=== PATIENT | female | born 1940 | race Hispanic/Latino ===

== ENCOUNTER 2018-11-25 02:42 | Inpatient (IN) | payer MEDICARE, MEDICAID ==
[2018-11-25 02:52] VITALS: BMI 27.4
--- NOTE | 2018-11-25 03:29 | ED PDOC ---
Arrival/HPI - General Chief Complaint: Trauma Time Seen by Provider: 11/25/18 02:43 Historian: Patient - History of Present Illness Narrative History of Present Illness (Text): 11/25/18 03:31 78 year old female, whose past medical history includes seizure disorder, presents to the emergency department for evaluation status post fall. Patient states she doesn't think she lost consciousness. Patient states she got very lightheaded, and lost balance, and fell to the floor. Patient informs hitting her head, and her right ankle. Patient denies any fevers, chills, chest pain, shortness of breath, cough, abdominal pain, nausea, vomiting, diarrhea, or any other complaint. PMD: [place] Time/Duration: Prior to Arrival Symptom Onset: Sudden Symptom Course: Unchanged Quality: Aching Activities at Onset: Light Context: Home Past Medical History - Provider Review Nursing Documentation Reviewed: Yes - Cardiac Hx Pacemaker: No - Pulmonary Hx Respiratory Disorders: Yes Hx Pneumonia: Yes - Neurological Hx Paralysis: No - HEENT Hx HEENT Disorder: Yes Hx Deafness: Yes (BILATERAL EAR MORE TO LEFT THAN RIGHT HAS HEARING AIDES) - Renal Hx Renal Disorder: No - Endocrine/Metabolic Hx Diabetes Mellitus Type 1: No Hx Diabetes Mellitus Type 2: No - Hematological/Oncological Hx Blood Transfusions: No Hx Blood Transfusion Reaction: No - Integumentary Hx Dermatological Disorder: No - Musculoskeletal/Rheumatological Hx Musculoskeletal Disorders: Yes - Gastrointestinal Hx Gastrointestinal Disorders: Yes Hx Gall Bladder Disease: Yes (CHOLECYSTECTOMY) Other/Comment: GASTROENTERITIS,IBS,HEMORRHOIDS - Genitourinary/Gynecological Hx Genitourinary Disorders: No Other/Comment: HYSTERECTOMY,TUBAL LIGATION - Psychiatric Hx Emotional Abuse: No Hx Physical Abuse: No Hx Substance Use: No - Surgical History Hx Cholecystectomy: Yes Hx Hysterectomy: Yes Other/Comment: LEFT EAR SURGERY,MENINGIONA RESECTION ,TUBAL LIGATION, TONSILLECTOMY, - Anesthesia Hx Anesthesia Reactions: No Hx Malignant Hyperthermia: No - Suicidal Assessment Feels Threatened In Home Enviroment: No Family/Social History - Physician Review Nursing Documentation Reviewed: Yes Family/Social History: No Known Family HX Smoking Status: Former Smoker Hx Alcohol Use: No Hx Substance Use: No Hx Substance Use Treatment: No Allergies/Home Meds Allergies/Adverse Reactions: Allergies No Known Allergies Allergy (Verified 11/25/18 02:53) Home Medications: Home Meds Medication Instructions Recorded Confirmed Atorvastatin [Lipitor] 40 mg PO DAILY 04/25/15 11/25/18 Oxcarbazepine [Trileptal] 150 mg PO BID 04/25/15 11/25/18 Lorazepam 0.5 mg PO HS PRN 01/12/16 11/25/18 Phenytoin Sodium Extended 200 mg PO BID 01/12/16 11/25/18 [Phenytek] Hydrochlorothiazide [HCTZ] 1 tab PO DAILY 05/25/16 11/25/18 Omeprazole 1 tab PO DAILY 05/25/16 11/25/18 Polyethylene Glycol 3350 [Miralax] 17 gm PO DAILY 05/30/16 11/25/18 Review of Systems - Physician Review All systems were reviewed & negative as marked: Yes - Review of Systems Constitutional: absent: Fevers Respiratory: absent: SOB Physical Exam - Physical Exam Narrative Physical Exam (Text): 11/25/18 03:21 Constitutional: No acute distress. Head: Normocephalic. Atraumatic. Eyes: PERRL. ENT: Moist mucous membranes. Neck: Supple. Cardiovascular: Regular rate. Chest: No tenderness. Respiratory: Clear to auscultation bilaterally. GI: Soft. Nontender. Nondistended. Back: No CVA tenderness. Musculoskeletal: Edema to lateral ankle with ecchymosis. Distal pulses 2+. Sensory-motor intact. Skin: No rash. Neurologic: Alert, no focal deficit. Vital Signs Reviewed: Yes Vital Signs Temp Pulse Resp BP Pulse Ox 11/25/18 03:04 97.9 F 95 H 16 145/100 H 99 Temperature: Afebrile Blood Pressure: Hypertensive Pulse: Tachycardic Respiratory Rate: Normal Appearance: Positive for: Well-Appearing, Non-Toxic, Comfortable Pain Distress: None Mental Status: Positive for: Alert and Oriented X 3 Medical Decision Making ED Course and Treatment: 11/25/18 03:35 Impression: 78 year old female presents for evaluation status post fall Plan: -- CT Head -- CMP, Chemistry -- CBC, Labs -- Chest X-ray -- X-ray right ankle -- Reassess and disposition Prior Visits: Notes and results from previous visits were reviewed. Progress Notes: 11/25/18 03:36 EKG reviewed by me, shows: Normal sinus rhythm @ 80bpm T wave inversions V1-V3 No ST elevation, QTC 479ms 11/25/18 05:34 CT scan of the head. CLINICAL HISTORY: Fall. TECHNIQUE: Multiple axial CT images were obtained through the brain without IV contrast material. COMMENTS: Left parietal craniotomy. Associated left parietal chronic encephalomalacia. Air-fluid levels with a secretions in the maxillary sinuses. Mild bilateral effusions in the mastoid air cells. There is normal configuration of sella turcica. There are no intra or extra- axial collections. There is no mass effect or midline shift. There is no evidence of hematoma formation. No hydrocephalus is present. The ventricles are symmetrical. No abnormal calcifications are present. There is diffuse age-appropriate cerebellar and cerebral atrophy with proportionally dilated ventricles and cortical sulci. There are bilateral periventricular and subcortical white matter hypolucencies compatible with mild chronic microvascular disease. Otherwise, no significant focal abnormalities are seen either in the posterior fossa or supratentorial compartment. IMPRESSION: 1. Age-appropriate cerebellar and cerebral atrophy. 2. Mild chronic microvascular disease. 3. No evidence of acute intracranial pathology. Splint placed. Dr. Sanford accepts to his service, recommends Dr. Camargo for Ortho consultation. - Scribe Statement The provider has reviewed the documentation as recorded by the Abril Faustin Provider Scribe Attestation: All medical record entries made by the Scribe were at my direction and personally dictated by me. I have reviewed the chart and agree that the record accurately reflects my personal performance of the history, physical exam, medical decision making, and the department course for this patient. I have also personally directed, reviewed, and agree with the discharge instructions and disposition. Disposition/Present on Arrival - Present on Arrival Any Indicators Present on Arrival: No History of DVT/PE: No History of Uncontrolled Diabetes: No Urinary Catheter: No History of Decub. Ulcer: No History Surgical Site Infection Following: None - Disposition Have Diagnosis and Disposition been Completed?: Yes Diagnosis: Syncope, Ankle fracture, Acute electrocardiogram changes Disposition: HOSPITALIZED Disposition Time: 04:50 Patient Plan: Admission, Telemetry Condition: FAIR Discharge Instructions (ExitCare): Syncope (ED) Referrals: Leyla Sandoval DO [Primary Care Provider] - Follow up with primary Forms: [employer] (Citizen [place])
[2018-11-25 03:43] LABS: BASO # 0.04 K/mm3 (0.0-2.0); BASO % 0.4 % (0.0-3.0); EOS # 0.2 (0.0-0.7); EOS % 2.4 % (1.5-5.0); GRAN # 5.59 (1.4-6.5); GRAN % 61.8 % (50.0-68.0); HEMOGLOBIN 12.9 g/dL (12.0-16.0); LYMPH # 2.7 (1.2-3.4); LYMPH % 29.9 % (22.0-35.0); MEAN CELL VOLUME 97.7 fl (80.0-105.0); MEAN CORPUSCULAR HEMOGLOBIN 32.8 pg (25.0-35.0); MEAN CORPUSCULAR HGB CONC 33.6 g/dl (31.0-37.0); MEAN PLATELET VOLUME 10.5 fl (7.0-11.0); MONO # 0.5 (0.1-0.6); MONO % 5.5 % (1.0-6.0); RBC 3.93 10^6/uL (3.5-6.1); RED CELL DISTRIBUTION WIDTH 12.9 % (11.5-14.5); WHITE BLOOD COUNT 9.1 10^3/uL (4.5-11.0)
[2018-11-25 03:48] LABS: INR 0.97; PARTIAL THROMBOPLASTIN TIME 25.8 Seconds (25.1-36.5); PROTHROMBIN TIME 11.1 SECONDS (9.4-12.5)
[2018-11-25 03:49] LABS: ALB/GLOB RATIO 1.2 (1.1-1.8); ALBUMIN 4.2 g/dL (3.0-4.8); ALT/SGPT 26 U/L (7-56); AST/SGOT 29 U/L (14-36); BLOOD UREA NITROGEN 13 mg/dL (7-21); CALCIUM 9.2 mg/dL (8.4-10.5); GFR NON-AFRICAN AMERICAN > 60
[2018-11-25 04:00] LABS: TROPONIN I < 0.01 ng/mL
[2018-11-25] MEDS ORDERED: Morphine 2 mg/ml ISec IVP STA (04:09)
--- NOTE | 2018-11-25 07:13 | CT ---
Date of service: 11/25/2018 PROCEDURE: CT HEAD WITHOUT CONTRAST. HISTORY: fall COMPARISON: Noncontrast head CT 01/11/2016. TECHNIQUE: Axial computed tomography images were obtained through the head/brain without intravenous contrast. Radiation dose: Total exam DLP = 874.5 mGy-cm. This CT exam was performed using one or more of the following dose reduction techniques: Automated exposure control, adjustment of the mA and/or kV according to patient size, and/or use of iterative reconstruction technique. FINDINGS: HEMORRHAGE: No intracranial hemorrhage. BRAIN: A stable, large chronic left parietal lobar infarct is appreciated without significant change. Otherwise, good corticomedullary differentiation is seen. Reiterated diffuse cerebral atrophy and chronic microangiopathy. No suspicious extra-axial fluid collection is identified and the midline brain anatomy appears grossly nonfocal as imaged. No mass effect identified. VENTRICLES: Unremarkable. No hydrocephalus. CALVARIUM: Unremarkable. PARANASAL SINUSES: Unremarkable as visualized. No significant inflammatory changes. MASTOID AIR CELLS: Unremarkable as visualized. No inflammatory changes. OTHER FINDINGS: None. IMPRESSION: 1. No demonstrated acute intracranial findings in the interval compared prior CT 01/11/2016. 2. Left parietal chronic lobar infarction reiterated. 3. Reiterated limited age related neuro degenerative changes, age-appropriate. Concordant preliminary report from [facility], 11/25/2018 5:06 a.m..
--- NOTE | 2018-11-25 07:32 | RAD ---
Date of service: 11/25/2018 HISTORY: near syncope COMPARISON: 01/11/2016 FINDINGS: LUNGS: No active pulmonary disease. PLEURA: No significant pleural effusion identified, no pneumothorax apparent. CARDIOVASCULAR: Aortic calcifications Normal cardiac size. No pulmonary vascular congestion. OSSEOUS STRUCTURES: No significant abnormalities. VISUALIZED UPPER ABDOMEN: Normal. OTHER FINDINGS: None. IMPRESSION: No active disease.
--- NOTE | 2018-11-25 07:36 | RAD ---
Date of service: 11/25/2018 PROCEDURE: Right Ankle Radiographs. HISTORY: ankle edema, fall COMPARISON: None available. FINDINGS: BONES: There is a displaced obliquely oriented fracture of the distal fibula just above the level of the ankle joint. JOINTS: Normal. No osteoarthritis. Ankle mortise maintained. Talar dome intact SOFT TISSUES: Normal. OTHER FINDINGS: None. IMPRESSION: There is a displaced obliquely oriented fracture of the distal fibula just above the level of the ankle joint.
--- NOTE | 2018-11-25 08:13 | CP.PCM.HP ---
<Darcie Tobar - Last Filed: 11/25/18 14:01> History of Present Illness - History of Present Illness History of Present Illness: 78yo female PMHx brain tumor s/p resection, seizure disorder, HTN, HLD, hearing deficit, vertigo, OA, and falls was BIBA to [facility] for dizziness and a fall. Patient reports that the day prior she was getting out of the bathroom and felt dizzy and fell over. She was alone when this happened. She believes she did lose consciousness as she does not remember what happened after she fell until she "woke up" and does not recall how long she was lying on the floor for. Patient did admit to having a sensation of "dry lips" which she does prior to having seizures in the past. She denied any biting of the tongue/lips and denied any bladder/bowel incontinence. She did report hitting her head at the back but denied any headaches. Patient's last seizure was in the fall of last year. She reports she began having seizures after her tumor resection and sees a neurologi st outpatient for this and is compliant with her medications. Her seizures used to be grand mal but she is uncertain of what they are now. Patient reports she has had multiple falls in the pat. She did admit to RLE pain and swelling and reported her ankle and shins were bruised. She denied acute complaints of fever, chills, changes in vision, changes in hearing, chest pain, palpitations, SOB, cough, abdominal pain, nausea, vomiting, dysuria, hematuria, numbness/tingling, focal deficits. Patient did admit that she often has trouble remembering things and finds herself repeating herself and has constipation, decreased appetite, and decreased urination. PMHx: brain tumor s/p resection, seizure disorder, HTN, HLD, hearing deficit, vertigo, OA, and falls PSurgHx: cholecystectomy, brain tumor resection, hysterectomy PProcedure: colonoscopy 2 years ago Meds: pls see chart ALL: NKDA FamHx: sister with breast ca; mother and father had MIs; sister had an MD; no history of CVA in the family SocHx: tobacco use in the past- quit 20 years ago; denies EtOH/drug use. Lives at home by herself. She has a visiting aid 5 times/week. Patient has not worked with PT in the past. 12 point ROS reviewed and as per above PMD: Dr. Leyla Sandoval Neuro: Dr. Mckenzie Uriarte Present on Admission - Present on Admission Any Indicators Present on Admission: No Review of Systems - Review of Systems All systems: reviewed and no additional remarkable complaints except Review of Systems: as per HPI Past Patient History - Past Social History Smoking Status: Former Smoker - CARDIAC Hx Pacemaker: No - PULMONARY Hx Respiratory Disorders: Yes Hx Pneumonia: Yes - NEUROLOGICAL Hx Paralysis: No - HEENT Hx HEENT Problems: Yes Hx Deafness: Yes (BILATERAL EAR MORE TO LEFT THAN RIGHT HAS HEARING AIDES) - RENAL Hx Chronic Kidney Disease: No - ENDOCRINE/METABOLIC Hx Diabetes Mellitus Type 1: No Hx Diabetes Mellitus Type 2: No - HEMATOLOGICAL/ONCOLOGICAL Hx Blood Transfusions: No Hx Blood Transfusion Reaction: No - INTEGUMENTARY Hx Dermatological Problems: No - MUSCULOSKELETAL/RHEUMATOLOGICAL Hx Musculoskeletal Disorders: Yes - GASTROINTESTINAL Hx Gastrointestinal Disorders: Yes Hx Gall Bladder Disease: Yes (CHOLECYSTECTOMY) Other/Comment: GASTROENTERITIS,IBS,HEMORRHOIDS - GENITOURINARY/GYNECOLOGICAL Hx Genitourinary Disorders: No Other/Comment: HYSTERECTOMY,TUBAL LIGATION - PSYCHIATRIC Hx Emotional Abuse: No Hx Physical Abuse: No Hx Substance Use: No - SURGICAL HISTORY Hx Cholecystectomy: Yes Hx Hysterectomy: Yes Other/Comment: LEFT EAR SURGERY,MENINGIONA RESECTION ,TUBAL LIGATION, TONSILLECTOMY, - ANESTHESIA Hx Anesthesia Reactions: No Hx Malignant Hyperthermia: No Meds Allergies/Adverse Reactions: Allergies Allergy/AdvReac Type Severity Reaction Status Date / Time No Known Allergies Allergy Verified 11/25/18 02:53 Physical Exam - Constitutional Appears: Non-toxic, No Acute Distress - Head Exam Head Exam: ATRAUMATIC, NORMAL INSPECTION, NORMOCEPHALIC - Eye Exam Eye Exam: EOMI, Normal appearance, PERRL. absent: Conjunctival injection, Scleral icterus - ENT Exam ENT Exam: Mucous Membranes Moist - Neck Exam Neck exam: Positive for: Full Rom. Negative for: Lymphadenopathy, Tenderness - Respiratory Exam Respiratory Exam: Clear to Auscultation Bilateral, NORMAL BREATHING PATTERN. absent: Accessory Muscle Use, Rales, Rhonchi, Wheezes, Respiratory Distress - Cardiovascular Exam Cardiovascular Exam: Tachycardia, +S1, +S2 - GI/Abdominal Exam GI & Abdominal Exam: Normal Bowel Sounds, Soft. absent: Firm, Guarding, Rigid, Tenderness - Extremities Exam Additional comments: RLE swollen and tender to palpation; wrapped in YA wrap LLE distal pulses present - Back Exam Back exam: NORMAL INSPECTION. absent: rash noted - Neurological Exam Neurological exam: Alert, Oriented x3 Additional comments: +pill rolling tremor - Psychiatric Exam Psychiatric exam: Anxious Results - Vital Signs Recent Vital Signs: Last Vital Signs Temp 97.9 F 11/25/18 03:04 Pulse 76 11/25/18 06:46 Resp 19 11/25/18 06:46 BP 115/71 11/25/18 06:46 Pulse Ox 96 11/25/18 06:46 - Labs Result Diagrams: 11/25/18 03:11 11/25/18 03:11 Labs: Laboratory Results - last 24 hr 11/25/18 11/25/18 11/25/18 03:11 03:11 03:11 WBC 9.1 RBC 3.93 Hgb 12.9 Hct 38.4 MCV 97.7 MCH 32.8 MCHC 33.6 RDW 12.9 Plt Count 258 MPV 10.5 Gran % 61.8 Lymph % (Auto) 29.9 [place] % (Auto) 5.5 Eos % (Auto) 2.4 Baso % (Auto) 0.4 Gran # 5.59 Lymph # (Auto) 2.7 [place] # (Auto) 0.5 Eos # (Auto) 0.2 Baso # (Auto) 0.04 PT INR APTT Sodium 140 Potassium 3.6 Chloride 102 Carbon Dioxide 30 Anion Gap 12 BUN 13 Creatinine 0.9 Est GFR ( Amer) > 60 Est GFR (Non-Af Amer) > 60 Random Glucose 123 H Calcium 9.2 Total Bilirubin 0.6 AST 29 ALT 26 Alkaline Phosphatase 116 Total Creatine Kinase 54 Troponin I < 0.01 Total Protein 7.7 Albumin 4.2 Globulin 3.5 Albumin/Globulin Ratio 1.2 Blood Type O POSITIVE Blood Type Confirm Antibody Screen Negative BBK History Checked No verified bt 11/25/18 11/25/18 03:11 06:48 WBC RBC Hgb Hct MCV MCH MCHC RDW Plt Count MPV Gran % Lymph % (Auto) [place] % (Auto) Eos % (Auto) Baso % (Auto) Gran # Lymph # (Auto) [place] # (Auto) Eos # (Auto) Baso # (Auto) PT 11.1 INR 0.97 APTT 25.8 Sodium Potassium Chloride Carbon Dioxide Anion Gap BUN Creatinine Est GFR ( Amer) Est GFR (Non-Af Amer) Random Glucose Calcium Total Bilirubin AST ALT Alkaline Phosphatase Total Creatine Kinase Troponin I Total Protein Albumin Globulin Albumin/Globulin Ratio Blood Type Blood Type Confirm O POSITIVE Antibody Screen BBK History Checked Assessment & Plan - Assessment and Plan (Free Text) Assessment: 1. Syncope 2. Seizure disorder 3. Frequent Falls 4. R distal fibula fracture 5. HTN 6. HLD 7. Hearing impairment left worse than right 8. Vertigo 9. Osteoarthritis 10. Anxiety 11. Delirium 12. Constipation 13. Decreased appetite Plan: Patient's vitals, imaging, and blood work reviewed in chart. Patient admitted to remote [facility] for further management. Patient's syncope to be investigated for any cardiogenic vs neurogenic causes. Head CT demonstrated no acute intracranial findings; Left parietal chronic lobar infarction and age related neurodegenerative changes. Carotid u/s and orthostatics ordered- will f/u. Cardiology was consulted who ordered an Echo- will f/u. As the patient was un certain if she had a seizure, neurology was also consulted for further work up. Patient's phenytoin level elevated at 21. Patient was restarted on home medications Trileptal and Dilantin. Patient also has seizure precautions in place and has Ativan on board as prn for seizure activity. Will f/u neurology recommendations. As patient endorsed multiple falls, physical therapy has been consulted for gait training and evaluation and patient placed on high fall risk protocol. Patient's R ankle x-ray revealed a displaced obliquely oriented fracture of the distal fibula just above the level of the ankle joint. Ortho was consulted and patient's RLE is in a splint. Patient has tylenol on board for mil d pain and morphine ordered for moderate pain. 25OH vitamin D ordered- will f/u. Patient's home medications of ASA 81mg, HCTZ 25mg, and Lipitor 40mg was continued for chronic issues of HTN and HLD. Will continue to monitor patient's blood pressure and follow up work up of Lipid panel, Thyroid studies, and HgbA1c with AM labs. Patient endorsed constipation; will continue home Dulcolax prn and Miralax daily and monitor for bowel movements. Patient also endorsed a decreased appetite- utility helicopter repairer consulted to evaluate. Patient's hearing impairment likely secondary to episodes of otitis media in the past; patient wears a hearing aid at home. Has been recommended to bring in with family. Patient has home ativan on board for anxiety. If patient has episodes of delirium, recommended to re- direct at this time. DVT ppx ordered and patient on a heart healthy diet. Will continue to monitor patient closely. Discussed with Dr. Juvenal Tobar PGY3 <Jessee Sanford - Last Filed: 11/25/18 19:57> Results - Vital Signs Recent Vital Signs: Last Vital Signs Temp 97.9 F 11/25/18 19:18 Pulse 82 11/25/18 19:18 Resp 20 11/25/18 19:18 BP 133/79 11/25/18 19:18 Pulse Ox 94 L 11/25/18 19:18 - Labs Result Diagrams: 11/25/18 03:11 11/25/18 03:11 Labs: Laboratory Results - last 24 hr 11/25/18 11/25/18 11/25/18 03:11 03:11 03:11 WBC 9.1 RBC 3.93 Hgb 12.9 Hct 38.4 MCV 97.7 MCH 32.8 MCHC 33.6 RDW 12.9 Plt Count 258 MPV 10.5 Gran % 61.8 Lymph % (Auto) 29.9 [place] % (Auto) 5.5 Eos % (Auto) 2.4 Baso % (Auto) 0.4 Gran # 5.59 Lymph # (Auto) 2.7 [place] # (Auto) 0.5 Eos # (Auto) 0.2 Baso # (Auto) 0.04 PT INR APTT Sodium 140 Potassium 3.6 Chloride 102 Carbon Dioxide 30 Anion Gap 12 BUN 13 Creatinine 0.9 Est GFR ( Amer) > 60 Est GFR (Non-Af Amer) > 60 POC Glucose (mg/dL) Random Glucose 123 H Calcium 9.2 Total Bilirubin 0.6 AST 29 ALT 26 Alkaline Phosphatase 116 Total Creatine Kinase 54 Troponin I < 0.01 Total Protein 7.7 Albumin 4.2 Globulin 3.5 Albumin/Globulin Ratio 1.2 25-OH Vitamin D Total Phenytoin Blood Type O POSITIVE Blood Type Confirm Antibody Screen Negative BBK History Checked No verified bt 11/25/18 11/25/18 11/25/18 03:11 06:48 08:20 WBC RBC Hgb Hct MCV MCH MCHC RDW Plt Count MPV Gran % Lymph % (Auto) [place] % (Auto) Eos % (Auto) Baso % (Auto) Gran # Lymph # (Auto) [place] # (Auto) Eos # (Auto) Baso # (Auto) PT 11.1 INR 0.97 APTT 25.8 Sodium Potassium Chloride Carbon Dioxide Anion Gap BUN Creatinine Est GFR ( Amer) Est GFR (Non-Af Amer) POC Glucose (mg/dL) Random Glucose Calcium Total Bilirubin AST ALT Alkaline Phosphatase Total Creatine Kinase Troponin I Total Protein Albumin Globulin Albumin/Globulin Ratio 25-OH Vitamin D Total Phenytoin 21 H Blood Type Blood Type Confirm O POSITIVE Antibody Screen BBK History Checked 11/25/18 11/25/18 08:22 16:12 WBC RBC Hgb Hct MCV MCH MCHC RDW Plt Count MPV Gran % Lymph % (Auto) [place] % (Auto) Eos % (Auto) Baso % (Auto) Gran # Lymph # (Auto) [place] # (Auto) Eos # (Auto) Baso # (Auto) PT INR APTT Sodium Potassium Chloride Carbon Dioxide Anion Gap BUN Creatinine Est GFR ( Amer) Est GFR (Non-Af Amer) POC Glucose (mg/dL) 107 Random Glucose Calcium Total Bilirubin AST ALT Alkaline Phosphatase Total Creatine Kinase Troponin I Total Protein Albumin Globulin Albumin/Globulin Ratio 25-OH Vitamin D Total 92.5 Phenytoin Blood Type Blood Type Confirm Antibody Screen BBK History Checked Assessment & Plan - Assessment and Plan (Free Text) Plan: Pt seen and examined by me. I have reviewed the note of the medical clerk and I agree with it. I have discussed the assessment and plan with the resident. I have reviewed the medications and the last labs.Pt with syncope. She has a hx of Sz d/o. She will need neuro and cardio evaluation. She will be continued on Di lantin and Trileptal. She has a R distal fibula fx and will need Ortho evaluation. She is going to continue with HCTZ for her HTN. She will be continued on Lipitor for her dyslipidmeia. She will get PT and will most likely need FABRICE. Will need echo to evaluate valves and LV function.
[2018-11-25] MEDS ORDERED: Bisacodyl 5mg EC Tab PO PRN (09:59)
[2018-11-25] MEDS: POLYETHYLENE GLYCOL 3350 17 GM/Dose PACKET PO SCH ×2 (11:08→11:11)
--- NOTE | 2018-11-25 14:07 | CON ---
DATE: 11/25/2018 REASON FOR CONSULTATION: Cardiac evaluation, rule out syncope, rule out seizure disorders, status post fall. 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 She is not sure whether she passed out or blacked out but she thinks she is and she had a very small seizure activity and fell down and sustained right ankle injury. Denies any chest pain. Denies any shortness of breath. Denies any palpitation prior to this event, but though she claims that on walking she gets short winded every now and then. PAST MEDICAL HISTORY: Significant for brain tumor, status post craniotomy and history of seizure disorder and history of osteoarthritis. PAST SURGICAL HISTORY: Significant for cholecystectomy 10 years ago, history of craniotomy for brain tumor 9 years ago and history of hysterectomy after that. SOCIAL HISTORY: Ex-smoker, quit 30 years ago. Denies any history of alcohol abuse. CURRENT MEDICATIONS: The patient is taking MiraLax 17 g daily, phenytoin 200 mg p.o. twice daily, Trileptal 150 mg p.o. b.i.d. lorazepam, hydrochlorothiazide and atorvastatin 40 mg daily. ALLERGIES: NO KNOWN DRUG ALLERGY. PREVIOUS CARDIAC WORKUP: As follows; the patient had a stress test done dated 01/13/2016 that shows ejection fraction of 74%, normal SPECT myocardial perfusion study, it was Lexiscan and negative for ischemia. The patient had also echocardiography done on 01/12/2016 which shows normal LV function, left atrium enlarged, trace aortic regurgitation, mild mitral regurgitation, mild tricuspid regurgitation, RV systolic pressure 47 suggestive of mild pulmonary hypertension dated 01/12/2016. REVIEW OF SYSTEMS: As per HPI. Denies any chest pain, but complained of shortness of breath on exertion and history of seizure disorder, as mentioned above, history of hard of hearing as mentioned above, history of osteoarthritis. PHYSICAL EXAMINATION: GENERAL: Height of the patient 5 feet 6 inches. Weight of the patient 170 pounds. Body mass index 27 kg/m2. VITAL SIGNS: Afebrile, heart rate 76 and blood pressure 115/71. HEENT: PERRLA. Extraocular muscles intact. NECK: Supple. No carotid bruit or thyromegaly. CHEST: Clear to auscultation. HEART: S1 and S2, regular. ABDOMEN: Soft. EXTREMITIES: Clubbing and cyanosis negative. LABORATORY DATA: WBC 9.1, hemoglobin 12.9, hematocrit 38.4, and platelet count 258. Chemistry shows sodium 140, potassium 3.6, chloride 102, CO2 of 30, anion gap of 12, BUN 13, creatinine 0.9, troponin 0.01. EKG shows normal sinus, no acute ST-T changes noted and nonspecific ST-T changes with no acute ST-T changes noted. QTc corrected to 479. IMPRESSION: A 78-year-old female with past medical history significant for brain tumor, status post craniotomy, history of seizure disorder, osteoarthritis, fell down on the way to the bathroom and sustained sprain of the ankle and displaced oblique orient fracture of distal fibula. Cardiac evaluation for possible syncope, possible seizure disorder, also complaining of shortness of breath. Recent cardiac workup 2 years ago, the patient had a stress test done was negative for ischemia and echo at that time revealed mild mitral regurgitation, mild tricuspid regurgitation, mild pulmonary hypertension. RECOMMENDATIONS: We will get echo to assess LV function, ortho evaluation. We will follow with you. So far CAT scan of the head was negative for any acute when compared from 01/11/2016, no acute changes noted from the CAT scan. Left parietal chronic lobar infarction reiterated as in the past. Recommendations, we will get echo to assess LV function, lipid profile, TSH, hemoglobin A1c. Should the patient need, fibular surgery, the patient can go cleared from Cardiology point of view. We will follow with you. We will resume the medication, the patient is asking for antiseizure medication. We will resume it. Thank you for providing us the opportunity in taking care of the patient, Adrienne Santillan. Maxim Fajardo MD
[2018-11-25] MEDS ORDERED: Pneumococcal 23-Valent Vaccine IM ONE (14:29)
[2018-11-25] MEDS ORDERED: Influenza Vaccine 60 mcg/0.5 mL SYR (4YR UP) IM ONE (14:29)
--- NOTE | 2018-11-25 15:11 | CON ---
DATE: 11/25/2018 HISTORY OF PRESENT ILLNESS: The patient slip and fell at home last night in the emergency room about 5 a.m., x-rays of the injured right ankle showed moderately displaced lateral malleolar fracture right ankle and the examination shows at the medial malleolus is nontender and the ankle motor does not unstable, so with this injury we could treated conservatively with short leg cast covered with sling was down them put in fracture boot cast and she can put partial weight on it with a walker. So, no surgery is needed . . So, I told the nurse, jian be put in a splint trying to get the swelling down quicker. In emergency room,will get a walking bootlater and I can follow her up in the office, since clear to here, she does not need surgery, just follow her closely, but she does need protection when she does walk. FINAL DIAGNOSES: Lateral malleolar fracture right ankle with intact medial malleolus and deltoid ligament intact and stable ankle mortise. PLAN: Plan to treat it conservatively with a short leg cast and fracture boot over period of 6 to 8 weeks. Evan Camargo DO LISA
--- NOTE | 2018-11-25 18:03 | US ---
Date of service: 11/25/2018 PROCEDURE: Duplex ultrasound of the carotid and vertebral arteries. HISTORY: syncope COMPARISON: None available. TECHNIQUE: Grayscale and duplex Doppler evaluation of the cervical carotid and vertebral arteries were performed. The common carotid, carotid bifurcations and cervical ICA and proximal ECA were evaluated. The vertebral arteries were evaluated for gross patency and direction. FINDINGS: RIGHT CAROTID ARTERIES: Common Carotid Artery: Normal. Maximal flow velocity of 79.4 cm/s. Carotid Bifurcation: Normal. Internal Carotid Artery:Heavy calcific plaque. Maximal flow velocity of 88.6 cm/s. External Carotid Artery (proximal branches): Normal. Maximal flow velocity of 154.3 cm/s. ICA/CCA Ratio: 1.3 LEFT CAROTID ARTERIES: Common Carotid Artery: Normal. Maximal flow velocity of 115.6 cm/s. Carotid Bifurcation: Calcific plaque. Internal Carotid Artery:Normal. Maximal flow velocity of 80.6 cm/s. External Carotid Artery (proximal branches): Normal. Maximal flow velocity of 102.6 cm/s. ICA/CCA Ratio: 0.9 VERTEBRAL ARTERIES: Right Vertebral Artery: Patent. Antegrade flow. Left Vertebral Artery: Patent. Antegrade flow. OTHER FINDINGS: No atherosclerotic calcification present IMPRESSION: Per NASCET criteria, less than 50 percent stenosis of the internal carotid arteries, bilaterally.
--- NOTE | 2018-11-25 18:23 | CON ---
DATE: 11/25/2018 CHIEF COMPLAINT: Evaluation of syncope and history of seizure disorder. HISTORY OF PRESENT ILLNESS: This is 78-year-old woman with history of left lobar infarction which resulted in seizures, on Trileptal and Dilantin for years, hypertension, hyperlipidemia, hearing deficit, vertigo, osteoarthritis came to ER for dizziness and fall. She reported that she was on antibiotic and felt lightheaded and spinning in the room and fell over. She happened. She believes she did not loose consciousness and does not remember what happen after that. The patient denies any lips smacking or any bowel and bladder incontinence. She has been compliant with her seizure medications. Actually, she follows as an outpatient. Her Dilantin level is 21, which is elevated, therefore caused her dizziness therefore will put her Dilantin in hold and just continue her on Trileptal, which is her dose of 150 mg p.o. b.i.d., significant enough to be for seizure prophylaxis. No focal deficits on exam. Carotid Doppler is current pending. She is also being evaluated by cardiology. PAST MEDICAL HISTORY: As above. SOCIAL HISTORY: No illicit drug use, smoking or EtOH abuse at this time. FAMILY HISTORY: Noncontributory MEDICATIONS: Reviewed by nurse's reconciliation sheet. ALLERGIES: NO KNOWN DRUG ALLERGIES. LABORATORY DATA: Dilantin level is 21. Sodium is 140, potassium is 3.6, chloride of 102, carbon dioxide 30, BUN of 13, creatinine 0.9, and random glucose of 123. PHYSICAL EXAMINATION: GENERAL: The patient seen up in bed and in no acute distress. VITAL SIGNS: Temperature 97.9, pulse rate of 79, blood pressure of 144/66, respiratory rate of 21,and oxygen saturation of 97% on room air. HEENT: Atraumatic, normocephalic. PERRLA. Extraocular muscles intact. NECK: Supple. No JVD. No adenopathy noted. LUNGS: Clear to auscultation. No adventitious sounds. HEART: S1 and S2 normal. Normal rate and rhythm. No murmurs, rubs or gallops. ABDOMEN: Soft, nontender and nondistended. Bowel sounds are present. EXTREMITIES: No clubbing and no cyanosis. Peripheral pulses are 2+ felt bilaterally. NEUROLOGICAL: The patient is alert and oriented to person, place, month and year. Recall after 5 minutes is 0.3. poor attention span. Slow thought process. Cranial nerves II through XII are intact. Motor exam; some mild residual weakness from prior CVA. Otherwise, toes are downgoing bilaterally. Sensory exam; light touch, pinprick, proprioception and vibration are intact. DTRs are 2+ throughout one in both in knees and ankles. Coordination; [id number] is intact. No dysmetria noted. Gaits are deferred for now. 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 She has possible syncope versus seizure. Her dizziness looking to be secondary to mild Dilantin toxicity since her level is 21. RECOMMENDATIONS: At this time; 1. Hold the Dilantin completely, can just continue with her Trileptal of 150 mg p.o. b.i.d. which is significant enough to provide seizure prophylaxis and hold the Dilantin until she could see her outpatient neurologist . 2. Carotid Doppler given her history of dizziness. 3. Continue with her Cardiology followup. 4. Aspirin 81 mg, Lipitor 40 mg for stroke prevention and continue current medical management. Thank you for this consult. Mason Beaver MD
[2018-11-25] MEDS: Morphine 2 mg/ml ISec IVP PRN (20:00)
--- NOTE | 2018-11-25 21:09 | CARD ---
APPROVED REPORT Date of service: 11/25/2018 EXAM: Two-dimensional and M-mode echocardiogram with Doppler and color Doppler. INDICATION Pre-Op LVFX, MR, TR S/P FALL, POSSIBLE OR 2D DIMENSIONS Left Atrium (2D)3.2 (1.6-4.0cm)IVSd1.2 (0.7-1.1cm) LVDd4.2 (3.9-5.9cm)PWd1.1 (0.7-1.1cm) LVDs3.1 (2.5-4.0cm)FS (%) 26.2 % LVEF (%)51.7 (>50%) M-Mode DIMENSIONS Aortic Root3.20 (2.2-3.7cm)Aortic Cusp Exc.1.60 (1.5-2.0cm) Aortic Valve AoV Peak Hnmdjkgp972.0cm/Tristin Peak GR.8mmHg Mitral Valve MV E Xskjkwgz37.1cm/sMV A Yvlalisx40.7cm/sE/A ratio0.7 TDI Lateral E' Peak V8.77cm/sMedial E' Peak V6.73cm/sE/Lateral E'8.3 E/Medial E'10.9 Pulmonary Valve PV Peak Nuixzfev40.6cm/sPV Peak Grad.2mmHg Tricuspid Valve TR Peak Wtprbqxp012na/sRAP [id number] Peak Gr.29mmHg VCDR22ioPc LEFT VENTRICLE The left ventricle is normal size. There is mild concentric left ventricular hypertrophy. The left ventricular function is normal.EF-55% There is normal LV segmental wall motion. Transmitral Doppler flow pattern is Grade III-reversible restrictive diastolic dysfunction. No left ventricle thrombus noted on this study. There is no ventricular septal defect visualized. There is no left ventricular aneurysm. There is no mass noted in the left ventricle. RIGHT VENTRICLE The right ventricle is normal size. There is normal right ventricular wall thickness. The right ventricular systolic function is normal. ATRIA The left atrium size is normal. The right atrium size is normal. The interatrial septum is intact with no evidence for an atrial septal defect. AORTIC VALVE The aortic valve is thickened but opens well. The aortic valve is mildly to moderately sclerotic. There is mild aortic regurgitation. There is no aortic valvular stenosis. There is no aortic valvular vegetation. MITRAL VALVE The mitral valve is thickened but opens well. Mitral regurgitation is mild to moderate. There is no mitral valve stenosis. The mitral valve leaflets are thickened and redundant consistent with mitral valve prolapse.( posterior Leaflet) TRICUSPID VALVE The tricuspid valve leaflets are thickened , but open well. There is mild tricuspid regurgitation.,RVSP-39 mmof Hg. There is no tricuspid valve stenosis. There is no tricuspid valve prolapse or vegetation. PULMONIC VALVE The pulmonary valve is normal in structure. There is no pulmonic valvular regurgitation. There is no pulmonic valvular stenosis. GREAT VESSELS The aortic root is normal in size. The ascending aorta is normal in size. The pulmonary artery is normal. The IVC is normal in size and collapses >50% with inspiration. PERICARDIAL EFFUSION There is no pleural effusion. There is no pericardial effusion. <Conclusion> Normal chamberSize. EF_55%. There is mild aortic regurgitation. Mitral regurgitation is mild to moderate. The mitral valve leaflets are thickened and redundant consistent with mitral valve prolapse.( posterior Leaflet) There is mild tricuspid regurgitation.,RVSP-39 mmof Hg. The IVC is normal in size and collapses >50% with inspiration. There is no pericardial effusion.
--- NOTE | 2018-11-25 23:34 | CARD ---
APPROVED REPORT Date of service: 11/25/2018 EKG Measurement Heart [id number] <Conclusion> Normal sinus rhythm Nonspecific ST and T wave abnormality Prolonged QT Abnormal ECG
[2018-11-26 07:08] LABS: BASO # 0.02 K/mm3 (0.0-2.0); BASO % 0.2 % (0.0-3.0); EOS % 0.3 % (1.5-5.0); GRAN # 6.68 (1.4-6.5); GRAN % 72.5 % (50.0-68.0); HEMOGLOBIN 11.2 g/dL (12.0-16.0); LYMPH # 1.6 (1.2-3.4); LYMPH % 17.8 % (22.0-35.0); MEAN CELL VOLUME 97.4 fl (80.0-105.0); MEAN CORPUSCULAR HEMOGLOBIN 32.2 pg (25.0-35.0); MEAN PLATELET VOLUME 10.4 fl (7.0-11.0); MONO # 0.9 (0.1-0.6); MONO % 9.2 % (1.0-6.0); RBC 3.48 10^6/uL (3.5-6.1); WHITE BLOOD COUNT 9.2 10^3/uL (4.5-11.0)
[2018-11-26 07:09] LABS: ALB/GLOB RATIO 1.3 (1.1-1.8); ALBUMIN 3.7 g/dL (3.0-4.8); ALT/SGPT 28 U/L (7-56); AST/SGOT 28 U/L (14-36); BLOOD UREA NITROGEN 14 mg/dL (7-21); CALCIUM 8.9 mg/dL (8.4-10.5); GFR NON-AFRICAN AMERICAN > 60; HDL CHOLESTEROL 67 mg/dL (29-60)
[2018-11-26 07:19] LABS: LDL CHOLESTEROL 86 mg/dL (0-129)
[2018-11-26 07:30] LABS: FREE T4 0.81 ng/dL (0.78-2.19)
[2018-11-26] MEDS ORDERED: Potassium Chloride 20 mEq ER Tab PO ONE (08:20)
--- NOTE | 2018-11-26 09:22 | CP.PCM.PN ---
<Darcie Tobar - Last Filed: 11/26/18 12:58> Subjective - Date & Time of Evaluation Date of Evaluation: 11/26/18 Time of Evaluation: 07:00 - Subjective Subjective: Pgy3 Medicine progress note for Dr. Sanford Patient seen and examined at bedside. Nursing reported overnight patient has no acute events. She was resting comfortably this AM but reported pain present in her RLE. She is eager to get out of bed and ambulate. Patient denied any headache, dizziness, chest pain, palpitations, SOB, cough, abd pain, nausea, vomiting, bowel/bladder complaints, swelling in her LLE. Objective - Vital Signs/Intake and Output Vital Signs (last 24 hours): Temp Pulse Resp BP Pulse Ox 98 F 88 20 128/64 95 11/26/18 08:11 11/26/18 08:11 11/26/18 08:11 11/26/18 08:11 11/26/18 08:11 Intake and Output: 11/26/18 11/26/18 06:59 18:59 Intake Total 720 Balance 720 - Medications Medications: Current Medications Acetaminophen (Tylenol 325mg Tab) 650 mg PO Q4H PRN PRN Reason: Pain, Mild (1-3) Aspirin (Aspirin Chewable) 81 mg PO DAILY [facility] Last Admin: 11/25/18 10:18 Dose: 81 mg Atorvastatin Calcium (Lipitor) 40 mg PO HS [facility] Last Admin: 11/25/18 21:58 Dose: 40 mg Bisacodyl (Dulcolax) 5 mg PO DAILY PRN PRN Reason: Constipation Last Admin: 11/25/18 10:18 Dose: 5 mg Heparin Sodium (Porcine) (Heparin) 5,000 units SC Q12 [facility]; Protocol Last Admin: 11/25/18 21:58 Dose: 5,000 units Hydrochlorothiazide (Hydrodiuril) 25 mg PO DAILY [facility] Last Admin: 11/25/18 10:18 Dose: 25 mg Lorazepam (Ativan) 0.5 mg PO HS PRN; Protocol PRN Reason: Restlessness Lorazepam (Ativan) 1 mg IVP Q6H PRN; Protocol PRN Reason: Seizure activity Morphine Sulfate (Morphine) 1 mg IVP Q6H PRN PRN Reason: Pain, moderate (4-7) Last Admin: 01/22/19 20:00 Dose: 1 mg Oxcarbazepine (Trileptal) 150 mg PO BID [facility]; Protocol Last Admin: 11/25/18 18:34 Dose: 150 mg Phenytoin Sodium (Dilantin) 200 mg PO BID [facility] Last Admin: 11/25/18 10:18 Dose: 200 mg Polyethylene Glycol (Miralax) 17 gm PO DAILY [facility] Last Admin: 11/25/18 11:11 Dose: 17 gm Potassium Chloride (K-Dur 20 Meq Er Tab) 20 meq PO BRK [facility] - Labs Labs: 11/26/18 06:00 11/26/18 06:00 PT 11.1 SECONDS (9.4-12.5) 11/25/18 03:11 INR 0.97 11/25/18 03:11 APTT 25.8 Seconds (25.1-36.5) 11/25/18 03:11 - Additional Findings Additional findings: - Constitutional Appears: Non-toxic, No Acute Distress - Head Exam Head Exam: ATRAUMATIC, NORMAL INSPECTION, NORMOCEPHALIC - Eye Exam Eye Exam: EOMI, Normal appearance, PERRL. absent: Conjunctival injection, Scleral icterus - ENT Exam ENT Exam: Mucous Membranes Moist - Neck Exam Neck exam: Positive for: Full Rom. Negative for: Lymphadenopathy, Tenderness - Respiratory Exam Respiratory Exam: Clear to Auscultation Bilateral, NORMAL BREATHING PATTERN. absent: Accessory Muscle Use, Rales, Rhonchi, Wheezes, Respiratory Distress - Cardiovascular Exam Cardiovascular Exam: Tachycardia, +S1, +S2 - GI/Abdominal Exam GI & Abdominal Exam: Normal Bowel Sounds, Soft. absent: Firm, Guarding, Rigid, Tenderness - Extremities Exam Additional comments: RLE swollen and tender to palpation; wrapped in YA wrap LLE distal pulses present - Back Exam Back exam: NORMAL INSPECTION. absent: rash noted - Neurological Exam Neurological exam: Alert, Oriented x3 Additional comments: +pill rolling tremor - Psychiatric Exam Psychiatric exam: Anxious Assessment and Plan - Assessment and Plan (Free Text) Assessment: 1. Syncope 2. Seizure disorder 3. Frequent Falls 4. R distal fibula fracture 5. HTN 6. HLD 7. Hearing impairment left worse than right 8. Vertigo 9. Osteoarthritis 10. Anxiety 11. Delirium 12. Constipation 13. Decreased appetite 14. Hypokalemia Plan: Patient's vitals, imaging, and blood work reviewed in chart. Head CT demonstrated no acute intracranial findings and carotid u/s revealed <50% b/l ICA stenosis. As per neuro, dizziness might be secondary to mild Dilantin toxicity of 21. Dilantin on hold at this time with continuation of Trileptal 150mg bid. Ativan prn for seizure activity. Patient on ASA and liptor for CVA prevention. Patient's echo reviewed. Lipid panel, HgbA1c, and Thyroid studies wnl. Patient's R ankle x-ray revealed a displaced obliquely oriented fracture of the distal fibula just above the level of the ankle joint. As per ortho, patient to be treated conservatively with short leg cast and boot over 6-8 weeks. Continue pain regimen at this time. PT on board for gait training. Patient's 25OH vitamin D wnl. Patient's potassium repleted this AM. Will continue bowel regimen as patient has not had a BM. 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 Patient's hearing impairment is chronic and likely secondary to episodes of otitis media in the past; patient wears a hearing aid at home. Patient has home ativan on board for anxiety. If patient has episodes of delirium, recommended to re-direct at this time. Seizure precautions in place. DVT ppx ordered and patient on a heart healthy [facility] diet. Will continue to monitor patient closely. Patient will likely be discharged to [facility] when medically optimized. Discussed with Dr. Juvenal Tobar PGY3 <Jessee Sanford S - Last Filed: 11/26/18 18:52> Objective - Vital Signs/Intake and Output Vital Signs (last 24 hours): Temp Pulse Resp BP Pulse Ox 98.4 F 94 H 20 137/70 92 L 11/26/18 17:58 11/26/18 17:58 11/26/18 17:58 11/26/18 17:58 11/26/18 17:58 Intake and Output: 11/26/18 11/26/18 06:59 18:59 Intake Total 720 Balance 720 - Medications Medications: Current Medications Acetaminophen (Tylenol 325mg Tab) 650 mg PO Q4H PRN PRN Reason: Pain, Mild (1-3) Aspirin (Aspirin Chewable) 81 mg PO DAILY [facility] Last Admin: 11/25/18 10:18 Dose: 81 mg Atorvastatin Calcium (Lipitor) 40 mg PO HS [facility] Last Admin: 11/25/18 21:58 Dose: 40 mg Bisacodyl (Dulcolax) 5 mg PO DAILY PRN PRN Reason: Constipation Last Admin: 11/25/18 10:18 Dose: 5 mg Heparin Sodium (Porcine) (Heparin) 5,000 units SC Q12 [facility]; Protocol Last Admin: 11/26/18 10:39 Dose: 5,000 units Hydrochlorothiazide (Hydrodiuril) 25 mg PO DAILY [facility] Last Admin: 11/26/18 10:39 Dose: 25 mg Lorazepam (Ativan) 0.5 mg PO HS PRN; Protocol PRN Reason: Restlessness Lorazepam (Ativan) 1 mg IVP Q6H PRN; Protocol PRN Reason: Seizure activity Morphine Sulfate (Morphine) 1 mg IVP Q6H PRN PRN Reason: Pain, moderate (4-7) Last Admin: 11/26/18 10:40 Dose: 1 mg Oxcarbazepine (Trileptal) 150 mg PO BID [facility]; Protocol Last Admin: 11/26/18 18:40 Dose: 150 mg Phenytoin Sodium (Dilantin) 200 mg PO BID [facility] Last Admin: 11/25/18 10:18 Dose: 200 mg Polyethylene Glycol (Miralax) 17 gm PO DAILY [facility] Last Admin: 11/25/18 11:11 Dose: 17 gm Potassium Chloride (K-Dur 20 Meq Er Tab) 20 meq PO BRK [facility] - Labs Labs: 11/26/18 06:00 11/26/18 06:00 PT 11.1 SECONDS (9.4-12.5) 11/25/18 03:11 INR 0.97 11/25/18 03:11 APTT 25.8 Seconds (25.1-36.5) 11/25/18 03:11 Assessment and Plan - Assessment and Plan (Free Text) Plan: Pt seen and examined by me. I have reviewed the note of the clinical medical transcriptionist and I agree with it. I have discussed the assessment and plan with the resident. I have reviewed the medications and the last labs. Pt with R fibula fx and will not require surgery. Pt was seen by Ortho. Mary on Trileptal for her Sz d/o. Mary on Lipitor for dyslipidemia. Hypokalemia treated with potassium. Will need FABRICE. She is [facility]
[2018-11-26] MEDS ORDERED: Enoxaparin 40 mg Syringe SC SCH (10:00)
[2018-11-26] MEDS: Morphine 2 mg/ml ISec IVP PRN (10:40)
--- NOTE | 2018-11-26 14:15 | PN ---
DATE: 11/26/2018 REASON FOR CONSULTATION: Cardiac evaluation, rule out syncope, rule out seizure, status post fall and fractured fibula. The patient denies any chest pain, shortness of breath, any palpitation. PHYSICAL EXAMINATION: GENERAL: The patient is not in apparent distress. VITAL SIGNS: Temperature afebrile, heart rate 88, blood pressure 128/64. HEENT: PERRLA. Extraocular muscles intact. NECK: Supple. No carotid bruits. No thyromegaly. CHEST: Clear to auscultation. HEART: S1 and S2 regular. ABDOMEN: Soft. EXTREMITIES: Clubbing, cyanosis negative. LABORATORY DATA: Blood workup as follows. WBC 9.2, hemoglobin 11.2, hematocrit 33.9, platelet count 206. Chemistries show sodium 130, potassium 3.4, chloride 100, carbon dioxide of 30, anion gap of 10, BUN 14 and creatinine 0.9. TSH is 0.89, triglycerides 77, total cholesterol is 190, LDL 86, HDL is 67. The patient had an echocardiography done yesterday to rule out any structural heart disease that revealed ejection fraction 55%, [id number] mitral regurgitation, mitral valve regurgitation consistent with mitral valve prolapse, posterior leaflet, mild tricuspid regurgitation, RV systolic pressure 39. IMPRESSION: A 78-year-old female with a past medical history significant for brain tumor, status post craniotomy, history of seizure disorder since surgery, history of osteoarthritis, fell down in the bathroom and sustained right ankle fibular fracture, being treated conservatively. Cardiac evaluations called for positive syncope. The patient not sure possible she lost conscious or not, but she thinks that she had an episode of seizure. Cardiac workup two years ago stress test was negative including echo; most recent echo done yesterday, repeat, preserved left ventricular function, [id number] mitral regurgitation, mild aortic valve prolapse with redundant posterior leaflet. Ejection fraction preserved to 55%. Mild tricuspid regurgitation, right ventricular systolic pressure 39. Aortic valve thickened. There is a mild aortic regurgitation. No valvular aortic stenosis. Bilateral carotid duplex suggested patent left vertebral artery, less than 50% stenosis of internal carotid artery bilateral nascent criteria. RECOMMENDATIONS: Continue baby aspirin 81 mg and continue phenytoin. Initially, the plan was the patient would be possible OR but it looks like the patient is going to be treated conservatively. We will add on DVT prophylaxis, Lovenox 40. Discussed with the patient. Continue rehab. For risk stratification, suggested stress test in 4 to 6 weeks as an outpatient, discussed with the patient. . No symptoms of angina. No symptom or arrhythmia. No symptom of congestive heart failure. We will supplement potassium. The patient is already on subcu heparin, so we will discontinue Lovenox. We will resume the patient on hydrochlorothiazide. We will put 2- K-Dur from tomorrow. Thank you for providing us the opportunity in taking care of the patient, Adrienne Santillan. Maxim Fajardo MD
--- NOTE | 2018-11-27 05:09 | CP.PCM.PN ---
<EkaterinaDarcie - Last Filed: 11/27/18 16:02> Subjective - Date & Time of Evaluation Date of Evaluation: 11/27/18 Time of Evaluation: 07:15 - Subjective Subjective: Pgy3 Medicine Progress note for Dr. Sanford Patient seen and examined at bedside. Nursing reported no acute events overnight and patient was resting comfortably when I saw her this AM. She reports her RLE pain is controlled. She is eager to be OOB and walk. Patient denied complaints of fever, chills, headache, dizziness, chest pain, palpitations, SOB, cough, abd pain, nausea, vomiting, bowel/bladder complaints, numbness/tingling in her b/l LE. Patient is tolerating diet. Objective - Vital Signs/Intake and Output Vital Signs (last 24 hours): Temp Pulse Resp BP Pulse Ox 98 F 84 20 123/63 95 11/27/18 00:10 11/27/18 01:40 11/27/18 00:10 11/27/18 00:10 11/27/18 00:10 - Medications Medications: Current Medications Acetaminophen (Tylenol 325mg Tab) 650 mg PO Q4H PRN PRN Reason: Pain, Mild (1-3) Aspirin (Aspirin Chewable) 81 mg PO DAILY [facility] Last Admin: 11/25/18 10:18 Dose: 81 mg Atorvastatin Calcium (Lipitor) 40 mg PO HS PETE Last Admin: 11/26/18 21:20 Dose: 40 mg Bisacodyl (Dulcolax) 5 mg PO DAILY PRN PRN Reason: Constipation Last Admin: 11/25/18 10:18 Dose: 5 mg Heparin Sodium (Porcine) (Heparin) 5,000 units SC Q12 PETE; Protocol Last Admin: 11/26/18 21:20 Dose: 5,000 units Hydrochlorothiazide (Hydrodiuril) 25 mg PO DAILY [facility] Last Admin: 11/26/18 10:39 Dose: 25 mg Lorazepam (Ativan) 0.5 mg PO HS PRN; Protocol PRN Reason: Restlessness Last Admin: 11/26/18 21:19 Dose: 0.5 mg Lorazepam (Ativan) 1 mg IVP Q6H PRN; Protocol PRN Reason: Seizure activity Morphine Sulfate (Morphine) 1 mg IVP Q6H PRN PRN Reason: Pain, moderate (4-7) Last Admin: 11/26/18 10:40 Dose: 1 mg Oxcarbazepine (Trileptal) 150 mg PO BID [facility]; Protocol Last Admin: 11/26/18 18:40 Dose: 150 mg Phenytoin Sodium (Dilantin) 200 mg PO BID [facility] Last Admin: 11/25/18 10:18 Dose: 200 mg Polyethylene Glycol (Miralax) 17 gm PO DAILY [facility] Last Admin: 11/25/18 11:11 Dose: 17 gm Potassium Chloride (K-Dur 20 Meq Er Tab) 20 meq PO BRK [facility] - Labs Labs: 11/26/18 06:00 11/26/18 06:00 PT 11.1 SECONDS (9.4-12.5) 11/25/18 03:11 INR 0.97 11/25/18 03:11 APTT 25.8 Seconds (25.1-36.5) 11/25/18 03:11 - Additional Findings Additional findings: - Constitutional Appears: Non-toxic, No Acute Distress - Head Exam Head Exam: ATRAUMATIC, NORMAL INSPECTION, NORMOCEPHALIC - Eye Exam Eye Exam: EOMI, Normal appearance, PERRL. absent: Conjunctival injection, Scleral icterus - ENT Exam ENT Exam: Mucous Membranes Moist - Neck Exam Neck exam: Positive for: Full Rom. Negative for: Lymphadenopathy, Tenderness - Respiratory Exam Respiratory Exam: Clear to Auscultation Bilateral, NORMAL BREATHING PATTERN. absent: Accessory Muscle Use, Rales, Rhonchi, Wheezes, Respiratory Distress - Cardiovascular Exam Cardiovascular Exam: RRR, +S1, +S2 - GI/Abdominal Exam GI & Abdominal Exam: Normal Bowel Sounds, Soft. absent: Firm, Guarding, Rigid, Tenderness - Extremities Exam Additional comments: RLE swollen and tender to palpation; wrapped in YA wrap LLE distal pulses present - Back Exam Back exam: NORMAL INSPECTION. absent: rash noted - Neurological Exam Neurological exam: Alert, Oriented x3 - Psychiatric Exam Psychiatric exam: Anxious Assessment and Plan - Assessment and Plan (Free Text) Assessment: 1. Syncope 2. Seizure disorder 3. Frequent Falls 4. R distal fibula fracture 5. HTN 6. HLD 7. Hearing impairment left worse than right 8. Vertigo 9. Osteoarthritis 10. Anxiety 11. Delirium 12. Constipation 13. Decreased appetite 14. Hypokalemia 15. Unsteady gait Plan: Patient's vitals, imaging, and blood work reviewed in chart. Head CT, carotid u/s, and Echo reviewed. Patient's dilantin has been on hold since 11/25 as per neuro reccs as dizziness might be secondary to mild Dilantin toxicity 21. Patient continues to be on Trileptal 150 bid and prn Ativan for seizure activity. Will continue asa and lipitor for CVA prevention. Lipid panel, HgbA1c, and Thyroid studies wnl. Patient's ankle fracture to be managed conservatively at this time with short leg cast and boot over 6-8 weeks. Patient's pain controlled on current regimen and bowel regimen continued. Patient's vit D wnl. Patient's potassium repleted this AM. Patient's hearing impairment is chronic and likely secondary to episodes of otitis media in the past; patient wears a hearing aid at home. Patient's anxiety is managed on home Ativan. If patient has episodes of delirium, recommended to re-direct at this time. DVT ppx ordered and patient on a heart healthy [facility] diet. PT on board. Seizure precautions in place. Will continue to monitor patient closely. Patient will likely be discharged to [facility] when medically optimized. Discussed with Dr. Juvenal Tobar PGY3 <Jessee Sanford S - Last Filed: 11/27/18 21:02> Objective - Vital Signs/Intake and Output Vital Signs (last 24 hours): Temp Pulse Resp BP Pulse Ox 98.6 F 89 20 143/98 H 91 L 11/27/18 08:12 11/27/18 16:52 11/27/18 16:52 11/27/18 16:52 11/27/18 16:52 Intake and Output: 11/27/18 11/28/18 18:59 06:59 Intake Total 120 Balance 120 - Medications Medications: Current Medications Acetaminophen (Tylenol 325mg Tab) 650 mg PO Q4H PRN PRN Reason: Pain, Mild (1-3) Aspirin (Aspirin Chewable) 81 mg PO DAILY [facility] Last Admin: 11/27/18 11:46 Dose: 81 mg Atorvastatin Calcium (Lipitor) 40 mg PO HS [facility] Last Admin: 11/26/18 21:20 Dose: 40 mg Bisacodyl (Dulcolax) 5 mg PO DAILY PRN PRN Reason: Constipation Last Admin: 11/25/18 10:18 Dose: 5 mg Heparin Sodium (Porcine) (Heparin) 5,000 units SC Q12 [facility]; Protocol Last Admin: 11/27/18 11:47 Dose: 5,000 units Hydrochlorothiazide (Hydrodiuril) 25 mg PO DAILY [facility] Last Admin: 11/27/18 11:46 Dose: 25 mg Lorazepam (Ativan) 0.5 mg PO HS PRN; Protocol PRN Reason: Restlessness Last Admin: 11/26/18 21:19 Dose: 0.5 mg Lorazepam (Ativan) 1 mg IVP Q6H PRN; Protocol PRN Reason: Seizure activity Oxcarbazepine (Trileptal) 150 mg PO BID [facility]; Protocol Last Admin: 11/27/18 17:47 Dose: 150 mg Oxycodone/Acetaminophen (Percocet 5/325 Mg Tab) 1 tab PO Q4H PRN PRN Reason: Pain, moderate (4-7) Stop: 11/30/18 09:30 Phenytoin Sodium (Dilantin) 200 mg PO BID [facility] Last Admin: 11/25/18 10:18 Dose: 200 mg Polyethylene Glycol (Miralax) 17 gm PO DAILY [facility] Last Admin: 11/27/18 11:46 Dose: 17 gm Potassium Chloride (K-Dur 20 Meq Er Tab) 20 meq PO BRK [facility] Last Admin: 11/27/18 11:47 Dose: 20 meq - Labs Labs: 11/27/18 06:05 11/27/18 06:05 PT 11.1 SECONDS (9.4-12.5) 11/25/18 03:11 INR 0.97 11/25/18 03:11 APTT 25.8 Seconds (25.1-36.5) 11/25/18 03:11 Assessment and Plan - Assessment and Plan (Free Text) Plan: Pt seen and examined by me. I have reviewed the note of the medical associate and I agree with it. I have discussed the assessment and plan with the resident. I have reviewed the medications and the last labs. Pt with syncope that has resolved. She has R fibula fx and will go to [facility] in the AM. HTN is controlled. She is on Trileptal for Sz d/o. Hearing impairment. On Ativan for anxiety.
[2018-11-27 06:35] LABS: BASO # 0.02 K/mm3 (0.0-2.0); BASO % 0.2 % (0.0-3.0); EOS # 0.1 (0.0-0.7); EOS % 0.5 % (1.5-5.0); GRAN # 6.71 (1.4-6.5); GRAN % 73.6 % (50.0-68.0); HEMOGLOBIN 10.9 g/dL (12.0-16.0); LYMPH # 1.5 (1.2-3.4); LYMPH % 15.9 % (22.0-35.0); MEAN CELL VOLUME 97.6 fl (80.0-105.0); MEAN CORPUSCULAR HEMOGLOBIN 32.4 pg (25.0-35.0); MEAN CORPUSCULAR HGB CONC 33.2 g/dl (31.0-37.0); MEAN PLATELET VOLUME 10.5 fl (7.0-11.0); MONO # 0.9 (0.1-0.6); MONO % 9.8 % (1.0-6.0); RBC 3.36 10^6/uL (3.5-6.1); RED CELL DISTRIBUTION WIDTH 12.8 % (11.5-14.5); WHITE BLOOD COUNT 9.1 10^3/uL (4.5-11.0)
[2018-11-27 07:07] LABS: ALB/GLOB RATIO 1.1 (1.1-1.8); ALBUMIN 3.6 g/dL (3.0-4.8); ALT/SGPT 20 U/L (7-56); AST/SGOT 27 U/L (14-36); BLOOD UREA NITROGEN 15 mg/dL (7-21); GFR NON-AFRICAN AMERICAN 54
[2018-11-27] MEDS ORDERED: Potassium Chloride 20 mEq ER Tab PO ONE (09:26)
[2018-11-27] MEDS ORDERED: Oxycodone/Acetaminophen 5/325 mg Tab PO PRN (09:29)
--- NOTE | 2018-11-27 10:24 | CP.PCM.PN ---
Subjective - Date & Time of Evaluation Date of Evaluation: 11/27/18 Time of Evaluation: 06:40 - Subjective Subjective: Awake, alert, no distress Reason for consultation and follow up: Cardiac evaluation rule out syncope, status post fall, fracture of right distal fibula above the ankle joint Seen and examined by me and Dr. Fajardo Objective - Vital Signs/Intake and Output Vital Signs (last 24 hours): Temp Pulse Resp BP Pulse Ox 98.6 F 79 20 128/71 95 11/27/18 08:12 11/27/18 08:12 11/27/18 08:12 11/27/18 08:12 11/27/18 08:12 Intake and Output: 11/27/18 11/27/18 06:59 18:59 Intake Total 120 Balance 120 - Medications Medications: Current Medications Acetaminophen (Tylenol 325mg Tab) 650 mg PO Q4H PRN PRN Reason: Pain, Mild (1-3) Aspirin (Aspirin Chewable) 81 mg PO DAILY [facility] [place] Last Admin: 11/25/18 10:18 Dose: 81 mg Atorvastatin Calcium (Lipitor) 40 mg PO HS [facility] Last Admin: 11/26/18 21:20 Dose: 40 mg Bisacodyl (Dulcolax) 5 mg PO DAILY PRN PRN Reason: Constipation Last Admin: 11/25/18 10:18 Dose: 5 mg Heparin Sodium (Porcine) (Heparin) 5,000 units SC Q12 [facility] [place]; Protocol Last Admin: 11/26/18 21:20 Dose: 5,000 units Hydrochlorothiazide (Hydrodiuril) 25 mg PO DAILY [facility] [place] Last Admin: 11/26/18 10:39 Dose: 25 mg Lorazepam (Ativan) 0.5 mg PO HS PRN; Protocol PRN Reason: Restlessness Last Admin: 11/26/18 21:19 Dose: 0.5 mg Lorazepam (Ativan) 1 mg IVP Q6H PRN; Protocol PRN Reason: Seizure activity Oxcarbazepine (Trileptal) 150 mg PO BID [facility] [place]; Protocol Last Admin: 11/26/18 18:40 Dose: 150 mg Oxycodone/Acetaminophen (Percocet 5/325 Mg Tab) 1 tab PO Q4H PRN PRN Reason: Pain, moderate (4-7) Stop: 11/30/18 09:30 Phenytoin Sodium (Dilantin) 200 mg PO BID [facility] [place] Last Admin: 11/25/18 10:18 Dose: 200 mg Polyethylene Glycol (Miralax) 17 gm PO DAILY [facility] [place] Last Admin: 11/25/18 11:11 Dose: 17 gm Potassium Chloride (K-Dur 20 Meq Er Tab) 20 meq PO BRK [facility] [place] - Labs Labs: 11/27/18 06:05 11/27/18 06:05 PT 11.1 SECONDS (9.4-12.5) 11/25/18 03:11 INR 0.97 11/25/18 03:11 APTT 25.8 Seconds (25.1-36.5) 11/25/18 03:11 - Constitutional Appears: Non-toxic, No Acute Distress - Head Exam Head Exam: NORMAL INSPECTION, NORMOCEPHALIC - Eye Exam Eye Exam: Normal appearance Pupil Exam: NORMAL ACCOMODATION - ENT Exam ENT Exam: Mucous Membranes Moist, Normal Exam - Respiratory Exam Respiratory Exam: Clear to Ausculation Bilateral, NORMAL BREATHING PATTERN - Cardiovascular Exam Cardiovascular Exam: REGULAR RHYTHM, +S1, +S2 Additional comments: Telemetry NSR - GI/Abdominal Exam GI & Abdominal Exam: Soft, Normal Bowel Sounds - Extremities Exam Additional comments: right leg with jonathan wrap elevate with pillow - Neurological Exam Neurological Exam: Alert, Awake, Oriented x3 - Psychiatric Exam Psychiatric exam: Normal Affect, Normal Mood - Skin Skin Exam: Dry, Normal Color, Warm Assessment and Plan - Assessment and Plan (Free Text) Assessment: A 78 year old female who came in to the Er due to fall. She complaints of right ankle pain and swelling. History of brain tumor s/p resection, seizure disorder, hypertension,hyperlipidemia, hearing deficit, vertigo, osteoarthritis, and falls ,cholecystectomy, brain tumor resection, hysterectomy. X ray of ankle showed f racture of right distal fibula above the ankle joint. Normal stress test on 01/13/2016. ECho on 01/12/2016 showed LVEF normal ,enlarged left atrium,trace AR,mild MR/TR. RVSP 47mmHg suggestive of mild pulmonary hypertension.Repeat Echo was done the other day. LVEF 55%,mild AR,mild to moderate MR, mitral valve leaflets thickened and redundant consistent with mitral valve prolapse (posterior leaflet),mild TR, RVSP 39 mmHg. no pericardial effusion. Carotid ultrasound showed less than 50% ICA stenosis bilaterally. Cardiac status stable.no further cardiac work up at this point. Plan: No distress, complaining of pain on right leg Heart rate stable Blood pressure stable Cardiac status stable Will discontinue telemetry On ASA 81 mg daily,Lipitor 40 mg daily,Hydrodiuril 25 mg daily, Dilantin 200 mg BID, Low potassium, replenish and started on Kdur 20 meq daily Continue current medications Continue current treatment Physical therapy Seizure precaution Will follow up Plan and treatment discussed with Dr. Fajardo
[2018-11-27] MEDS: POLYETHYLENE GLYCOL 3350 17 GM/Dose PACKET PO SCH (11:46)
[2018-11-27] MEDS: Potassium Chloride 20 mEq ER Tab PO SCH (11:47)
[2018-11-27 20:16] LABS: PHENYTOIN,FREE 1.8 mg/L (1.0-2.0)
--- NOTE | 2018-11-28 04:25 | CP.PCM.DIS ---
<Darcie Tobar - Last Filed: 11/28/18 10:18> Provider - Provider Date of Admission: 11/25/18 05:54 Attending physician: Jessee Sanford MD Primary care physician: Leyla Sandoval DO Consults: 11/25/18 05:42 Orthopedic Consult Stat Comment: Consulting Provider: Evan Camargo Consulting Physician: Evan Camargo Reason for Consult: ankle fracture 11/25/18 08:15 Consult [Physician Consult] Routine Comment: Consulting Provider: Maxim Fajardo Consulting Physician: Maxim Fajardo Reason for Consult: syncope Consult [Physician Consult] Routine Comment: Consulting Provider: Mason Beaver Consulting Physician: Mason Beaver Reason for Consult: syncope 11/25/18 13:59 Social Work Referral Routine Comment: d/c plan Physician Instructions: Reason For Exam: eval 11/25/18 14:29 Case Management Referral Routine Comment: Physician Instructions: Reason For Exam: Reason for Referral: Discharge Planning Inpatient DISEASE CASE MANAGER RN Core Measures Referral Routine Comment: Physician Instructions: syncope ekg changes r ankle fx Reason For Exam: eval Transition In Care/Readmission Reduction Routine Comment: r ankle fx Physician Instructions: Reason For Exam: eval Time Spent in preparation of Discharge (in minutes): 45 Hospital Course - Lab Results Lab Results: Most Recent Lab Values WBC 9.1 10^3/uL (4.5-11.0) 11/27/18 06:05 RBC 3.36 10^6/uL (3.5-6.1) L 11/27/18 06:05 Hgb 10.9 g/dL (12.0-16.0) L 11/27/18 06:05 Hct 32.8 % (36.0-48.0) L 11/27/18 06:05 MCV 97.6 fl (80.0-105.0) 11/27/18 06:05 MCH 32.4 pg (25.0-35.0) 11/27/18 06:05 MCHC 33.2 g/dl (31.0-37.0) 11/27/18 06:05 RDW 12.8 % (11.5-14.5) 11/27/18 06:05 Plt Count 176 10^3/uL (120.0-450.0) 11/27/18 06:05 MPV 10.5 fl (7.0-11.0) 11/27/18 06:05 Gran % 73.6 % (50.0-68.0) H 11/27/18 06:05 Lymph % (Auto) 15.9 % (22.0-35.0) L 11/27/18 06:05 [place] % (Auto) 9.8 % (1.0-6.0) H 11/27/18 06:05 Eos % (Auto) 0.5 % (1.5-5.0) L 11/27/18 06:05 Baso % (Auto) 0.2 % (0.0-3.0) 11/27/18 06:05 Gran # 6.71 (1.4-6.5) H 11/27/18 06:05 Lymph # (Auto) 1.5 (1.2-3.4) 11/27/18 06:05 [place] # (Auto) 0.9 (0.1-0.6) H 11/27/18 06:05 Eos # (Auto) 0.1 (0.0-0.7) 11/27/18 06:05 Baso # (Auto) 0.02 K/mm3 (0.0-2.0) 11/27/18 06:05 PT 11.1 SECONDS (9.4-12.5) 11/25/18 03:11 INR 0.97 11/25/18 03:11 APTT 25.8 Seconds (25.1-36.5) 11/25/18 03:11 Sodium 137 mmol/L (132-148) 11/27/18 06:05 Potassium 3.4 mmol/L (3.6-5.0) L 11/27/18 06:05 Chloride 101 mmol/L (98-107) 11/27/18 06:05 Carbon Dioxide 31 mmol/L (21-33) 11/27/18 06:05 Anion Gap 8 (10-20) L 11/27/18 06:05 BUN 15 mg/dL (7-21) 11/27/18 06:05 Creatinine 1.0 mg/dl (0.7-1.2) 11/27/18 06:05 Est GFR ( Amer) > 60 11/27/18 06:05 Est GFR (Non-Af Amer) 54 11/27/18 06:05 POC Glucose (mg/dL) 96 mg/dL (65-110) 11/27/18 07:12 Random Glucose 90 mg/dL (70-110) 11/27/18 06:05 Hemoglobin A1c 5.4 % (4.2-6.5) 11/26/18 06:00 Calcium 9.0 mg/dL (8.4-10.5) 11/27/18 06:05 Phosphorus 3.7 mg/dL (2.5-4.5) 11/26/18 06:00 Magnesium 1.5 mg/dL (1.7-2.2) L 11/26/18 06:00 Total Bilirubin 0.6 mg/dL (0.2-1.3) 11/27/18 06:05 AST 27 U/L (14-36) 11/27/18 06:05 ALT 20 U/L (7-56) 11/27/18 06:05 Alkaline Phosphatase 94 U/L (38-126) 11/27/18 06:05 Total Creatine Kinase 54 U/L (35-230) 11/25/18 03:11 Troponin I < 0.01 ng/mL 11/25/18 03:11 Total Protein 6.8 g/dL (5.8-8.3) 11/27/18 06:05 Albumin 3.6 g/dL (3.0-4.8) 11/27/18 06:05 Globulin 3.2 gm/dL 11/27/18 06:05 Albumin/Globulin Ratio 1.1 (1.1-1.8) 11/27/18 06:05 Triglycerides 77 mg/dL (35-160) 11/26/18 06:00 Cholesterol 190 mg/dL (130-200) 11/26/18 06:00 LDL Cholesterol Direct 86 mg/dL (0-129) 11/26/18 06:00 HDL Cholesterol 67 mg/dL (29-60) H 11/26/18 06:00 25-OH Vitamin D Total 92.5 NG/ML (30.0-100.0) 11/25/18 08:22 Free T4 0.81 ng/dL (0.78-2.19) 11/26/18 06:00 TSH 3rd Generation 0.89 mIU/mL (0.46-4.68) 11/26/18 06:00 Phenytoin 21 ug/mL (10-20) H 11/25/18 08:20 Free Phenytoin 1.8 mg/L (1.0-2.0) 11/25/18 18:00 Blood Type O POSITIVE 11/25/18 03:11 Blood Type Confirm O POSITIVE 11/25/18 06:48 Antibody Screen Negative 11/25/18 03:11 BBK History Checked No verified bt 11/25/18 03:11 - Hospital Course Hospital Course: Upon Admission As per HPI: "78yo female PMHx brain tumor s/p resection, seizure disorder, HTN, HLD, hearing deficit, vertigo, OA, and falls was BIBA to [facility] for dizziness and a fall. Patient reports that the day prior she was getting out of the bathroom and felt dizzy and fell over. She was alone when this happened. She believes she did lose consciousness as she does not remember what happened after she fell until she "woke up" and does not recall how long she was lying on the floor for. Patient did admit to having a sensation of "dry lips" which she does prior to having seizures in the past. She denied any biting of the tongue/lips and denied any bladder/bowel incontinence. She did report hitting her head at the back but denied any headaches. Patient's last seizure was in the fall of last year. She reports she began having seizures after her tumor resection and sees a neurologist outpatient for this and is compliant with her medications. Her s eizures used to be grand mal but she is uncertain of what they are now. Patient reports she has had multiple falls in the pat. She did admit to RLE pain and swelling and reported her ankle and shins were bruised." Hospital Course [facility]. Patient's syncope investigated for any cardiogenic vs neurogenic causes. Head CT demonstrated no acute intracranial findings; Left parietal chronic lobar infarction and age related neurodegenerative changes. Carotid u/s revealed <50% b/l ICA stenosis.Cardiology ordered an Echo that showed preserve dEF with mild TR and RVSP of 39. Patient's phenytoin level elevated at 21. As per neuro, dizziness might be secondary to mild Dilantin toxicity of 21. Dilantin was discontinued and patient continued on Trileptal. Patient's R ankle x-ray revealed a displaced obliquely oriented fracture of the distal fibula just above the level of the ankle joint. As per ortho, patient to be treated conservatively with short leg cast and boot over 6-8 weeks. 25OHvitD, Lipid panel, HgbA1c, and Thyroid studies wnl. As patient endorsed multiple falls, physical therapy has been consulted for gait training and evaluation and patient placed on high fall risk protocol. Patient's home medications of ASA 81mg, HCTZ 25mg, and Lipitor 40mg was continued for chronic issues of HTN and HLD. Patient endorsed constipation; will continue home Dulcolax prn and Miralax daily and monitor for bowel movements. Patient had home ativan on board for anxiety. If patient has episodes of delirium, recommended to re-direct at this time. Patient clinically improved and on day of discharge was deemed medically optimized for discharge to [facility]. Discharge Instructions "You are being discharged from [facility] to [facility] Please STOP taking your home medication Dilantin Please resume all other medications Please continue working with physical therapy at the [facility]. Upon discharge from [facility] please follow up with your PMD within 7 days Please also follow up with you Neurologist within 7 daysof discharge from [facility] Please also follow up with Orthopedics within 2 weeks of discharge from [facility] You have been scheduled for an outpatient stress test with Dr. Fajardo [cardiology] on 12/31/18 If symptoms return please visit your nearest Emergency Room" Instructions discussed in detail with patient who expressed understanding and agreement. Please note this is a discharge summary. For full hospital course please refer to medical records. Discharge Exam - Additional Findings Additional findings: - Constitutional Appears: Non-toxic, No Acute Distress - Head Exam Head Exam: ATRAUMATIC, NORMAL INSPECTION, NORMOCEPHALIC - Eye Exam Eye Exam: EOMI, Normal appearance, PERRL. absent: Conjunctival injection, Scleral icterus - ENT Exam ENT Exam: Mucous Membranes Moist - Neck Exam Neck exam: Positive for: Full Rom. Negative for: Lymphadenopathy, Tenderness - Respiratory Exam Respiratory Exam: Clear to Auscultation Bilateral, NORMAL BREATHING PATTERN. absent: Accessory Muscle Use, Rales, Rhonchi, Wheezes, Respiratory Distress - Cardiovascular Exam Cardiovascular Exam: RRR, +S1, +S2 - GI/Abdominal Exam GI & Abdominal Exam: Normal Bowel Sounds, Soft. absent: Firm, Guarding, Rigid, Tenderness - Extremities Exam Additional comments: RLE swollen and tender to palpation; wrapped in YA wrap LLE distal pulses present - Back Exam Back exam: NORMAL INSPECTION. absent: rash noted - Neurological Exam Neurological exam: Alert, Oriented x3 - Psychiatric Exam Psychiatric exam: Normal Affect, Normal Mood Discharge Plan - Follow Up Plan Condition: FAIR Disposition: TRANSF TO [facility] Instructions: Syncope (Fainting), Ankle Fracture (DC), Syncope (DC) Additional Instructions: You are being discharged from [facility] to [facility] Please STOP taking your home medication Dilantin Please resume all other medications Please continue working with physical therapy at the [facility]. Upon discharge from [facility] please follow up with your PMD within 7 days Please also follow up with you Neurologist within 7 daysof discharge from [facility] Please also follow up with Orthopedics within 2 weeks of discharge from [facility] You have been scheduled for an outpatient stress test with Dr. Fajardo [cardiology] on 12/31/18 If symptoms return please visit your nearest Emergency Room Referrals: Leyla Sandoval DO [Primary Care Provider] - Maxim Fajardo MD [Staff Provider] - Evan Camargo DO [Staff Provider] - Mckenzie Rothman MD [Medical Doctor] - <Jessee Sanford - Last Filed: 11/28/18 19:00> Provider - Provider Date of Admission: 11/25/18 05:54 Attending physician: Jessee Sanford MD Primary care physician: Leyla Sandoval DO Consults: 11/25/18 05:42 Orthopedic Consult Stat Comment: Consulting Provider: Evan Camargo Consulting Physician: Evan Camargo Reason for Consult: ankle fracture 11/25/18 08:15 Consult [Physician Consult] Routine Comment: Consulting Provider: Maxim Fajardo Consulting Physician: Maxim Fajardo Reason for Consult: syncope Consult [Physician Consult] Routine Comment: Consulting Provider: Mason Beaver Consulting Physician: Mason Beaver Reason for Consult: syncope 11/25/18 13:59 Social Work Referral Routine Comment: d/c plan Physician Instructions: Reason For Exam: eval 11/25/18 14:29 Case Management Referral Routine Comment: Physician Instructions: Reason For Exam: Reason for Referral: Discharge Planning Inpatient DISEASE CASE MANAGER RN Core Measures Referral Routine Comment: Physician Instructions: syncope ekg changes r ankle fx Reason For Exam: eval Transition In Care/Readmission Reduction Routine Comment: r ankle fx Physician Instructions: Reason For Exam: eval Hospital Course - Lab Results Lab Results: Most Recent Lab Values WBC 8.7 10^3/uL (4.5-11.0) 11/28/18 07:00 RBC 3.32 10^6/uL (3.5-6.1) L 11/28/18 07:00 Hgb 10.8 g/dL (12.0-16.0) L 11/28/18 07:00 Hct 32.0 % (36.0-48.0) L 11/28/18 07:00 MCV 96.4 fl (80.0-105.0) 11/28/18 07:00 MCH 32.5 pg (25.0-35.0) 11/28/18 07:00 MCHC 33.8 g/dl (31.0-37.0) 11/28/18 07:00 RDW 12.6 % (11.5-14.5) 11/28/18 07:00 Plt Count 181 10^3/uL (120.0-450.0) 11/28/18 07:00 MPV 10.1 fl (7.0-11.0) 11/28/18 07:00 Gran % 65.0 % (50.0-68.0) 11/28/18 07:00 Lymph % (Auto) 25.2 % (22.0-35.0) 11/28/18 07:00 [place] % (Auto) 8.7 % (1.0-6.0) H 11/28/18 07:00 Eos % (Auto) 1.0 % (1.5-5.0) L 11/28/18 07:00 Baso % (Auto) 0.1 % (0.0-3.0) 11/28/18 07:00 Gran # 5.63 (1.4-6.5) 11/28/18 07:00 Lymph # (Auto) 2.2 (1.2-3.4) 11/28/18 07:00 [place] # (Auto) 0.8 (0.1-0.6) H 11/28/18 07:00 Eos # (Auto) 0.1 (0.0-0.7) 11/28/18 07:00 Baso # (Auto) 0.01 K/mm3 (0.0-2.0) 11/28/18 07:00 PT 11.1 SECONDS (9.4-12.5) 11/25/18 03:11 INR 0.97 11/25/18 03:11 APTT 25.8 Seconds (25.1-36.5) 11/25/18 03:11 Sodium 136 mmol/L (132-148) 11/28/18 07:00 Potassium 3.5 mmol/L (3.6-5.0) L 11/28/18 07:00 Chloride 100 mmol/L (98-107) 11/28/18 07:00 Carbon Dioxide 28 mmol/L (21-33) 11/28/18 07:00 Anion Gap 10 (10-20) 11/28/18 07:00 BUN 15 mg/dL (7-21) 11/28/18 07:00 Creatinine 0.9 mg/dl (0.7-1.2) 11/28/18 07:00 Est GFR ( Amer) > 60 11/28/18 07:00 Est GFR (Non-Af Amer) > 60 11/28/18 07:00 POC Glucose (mg/dL) 96 mg/dL (65-110) 11/27/18 07:12 Random Glucose 87 mg/dL (70-110) 11/28/18 07:00 Hemoglobin A1c 5.4 % (4.2-6.5) 11/26/18 06:00 Calcium 9.0 mg/dL (8.4-10.5) 11/28/18 07:00 Phosphorus 3.7 mg/dL (2.5-4.5) 11/26/18 06:00 Magnesium 1.5 mg/dL (1.7-2.2) L 11/26/18 06:00 Total Bilirubin 0.5 mg/dL (0.2-1.3) 11/28/18 07:00 AST 36 U/L (14-36) D 11/28/18 07:00 ALT 28 U/L (7-56) 11/28/18 07:00 Alkaline Phosphatase 93 U/L (38-126) 11/28/18 07:00 Total Creatine Kinase 54 U/L (35-230) 11/25/18 03:11 Troponin I < 0.01 ng/mL 11/25/18 03:11 Total Protein 6.7 g/dL (5.8-8.3) 11/28/18 07:00 Albumin 3.6 g/dL (3.0-4.8) 11/28/18 07:00 Globulin 3.1 gm/dL 11/28/18 07:00 Albumin/Globulin Ratio 1.1 (1.1-1.8) 11/28/18 07:00 Triglycerides 77 mg/dL (35-160) 11/26/18 06:00 Cholesterol 190 mg/dL (130-200) 11/26/18 06:00 LDL Cholesterol Direct 86 mg/dL (0-129) 11/26/18 06:00 HDL Cholesterol 67 mg/dL (29-60) H 11/26/18 06:00 25-OH Vitamin D Total 92.5 NG/ML (30.0-100.0) 11/25/18 08:22 Free T4 0.81 ng/dL (0.78-2.19) 11/26/18 06:00 TSH 3rd Generation 0.89 mIU/mL (0.46-4.68) 11/26/18 06:00 Phenytoin 21 ug/mL (10-20) H 11/25/18 08:20 Free Phenytoin 1.8 mg/L (1.0-2.0) 11/25/18 18:00 Blood Type O POSITIVE 11/25/18 03:11 Blood Type Confirm O POSITIVE 11/25/18 06:48 Antibody Screen Negative 11/25/18 03:11 BBK History Checked No verified bt 11/25/18 03:11 - Hospital Course Hospital Course: Pt seen and examined by me. I have reviewed the note of the chief medical director and I agree with it. I have discussed the assessment and plan with the resident. I have reviewed the medications and the last labs. Pt with Lucia milton and will go to [facility] for rehab. She had a syncopal episode that resolved. The etiology was unknown but bay may have been vasovagal vs Sz (which is less likely). She has HTN and is on HCTZ. Her pain is controlled. She was seen by Neuro.
--- NOTE | 2018-11-28 06:58 | CP.PCM.PN ---
Subjective - Date & Time of Evaluation Date of Evaluation: 11/28/18 Time of Evaluation: 06:25 - Subjective Subjective: Lying in bed, awake, alert, no distress Reason for consultation and follow up: Cardiac evaluation rule out syncope, status post fall, fracture of right distal fibula above the ankle joint Seen and examined by me and Dr. Fajardo Objective - Vital Signs/Intake and Output Vital Signs (last 24 hours): Temp Pulse Resp BP Pulse Ox 98.6 F 89 20 143/98 H 91 L 11/27/18 08:12 11/27/18 16:52 11/27/18 16:52 11/27/18 16:52 11/27/18 16:52 Intake and Output: 11/27/18 11/28/18 18:59 06:59 Intake Total 120 Output Total 300 Balance 120 -300 - Medications Medications: Current Medications Acetaminophen (Tylenol 325mg Tab) 650 mg PO Q4H PRN PRN Reason: Pain, Mild (1-3) Aspirin (Aspirin Chewable) 81 mg PO DAILY [facility] Last Admin: 11/27/18 11:46 Dose: 81 mg Atorvastatin Calcium (Lipitor) 40 mg PO HS [facility] Last Admin: 11/27/18 21:47 Dose: 40 mg Bisacodyl (Dulcolax) 5 mg PO DAILY PRN PRN Reason: Constipation Last Admin: 11/25/18 10:18 Dose: 5 mg Heparin Sodium (Porcine) (Heparin) 5,000 units SC Q12 [facility]; Protocol Last Admin: 11/27/18 21:47 Dose: 5,000 units Hydrochlorothiazide (Hydrodiuril) 25 mg PO DAILY [facility] Last Admin: 11/27/18 11:46 Dose: 25 mg Lorazepam (Ativan) 0.5 mg PO HS PRN; Protocol PRN Reason: Restlessness Last Admin: 11/26/18 21:19 Dose: 0.5 mg Lorazepam (Ativan) 1 mg IVP Q6H PRN; Protocol PRN Reason: Seizure activity Oxcarbazepine (Trileptal) 150 mg PO BID [facility]; Protocol Last Admin: 11/27/18 17:47 Dose: 150 mg Oxycodone/Acetaminophen (Percocet 5/325 Mg Tab) 1 tab PO Q4H PRN PRN Reason: Pain, moderate (4-7) Stop: 11/30/18 09:30 Phenytoin Sodium (Dilantin) 200 mg PO BID [facility] Last Admin: 11/25/18 10:18 Dose: 200 mg Polyethylene Glycol (Miralax) 17 gm PO DAILY [facility] Last Admin: 11/27/18 11:46 Dose: 17 gm Potassium Chloride (K-Dur 20 Meq Er Tab) 20 meq PO BRK [facility] Last Admin: 11/27/18 11:47 Dose: 20 meq - Labs Labs: 11/27/18 06:05 11/27/18 06:05 PT 11.1 SECONDS (9.4-12.5) 11/25/18 03:11 INR 0.97 11/25/18 03:11 APTT 25.8 Seconds (25.1-36.5) 11/25/18 03:11 Assessment and Plan - Assessment and Plan (Free Text) Assessment: A 78 year old female who came in to the Er due to fall. She complaints of right ankle pain and swelling. History of brain tumor s/p resection, seizure disorder, hypertension,hyperlipidemia, hearing deficit, vertigo, osteoarthritis, and falls ,cholecystectomy, brain tumor resection, hysterectomy. X ray of ankle showed fracture of right distal fibula above the ankle joint. Normal stress test on 01/13/2016. [facility] on 01/12/2016 showed LVEF normal ,enlarged left atrium,trace AR,m ild MR/TR. RVSP 47mmHg suggestive of mild pulmonary hypertension.Repeat Echo was done the other day. LVEF 55%,mild AR,mild to moderate MR, mitral valve leaflets thickened and redundant consistent with mitral valve prolapse (posterior leaflet),mild TR, RVSP 39 mmHg. no pericardial effusion. Carotid ultrasound showed less than 50% ICA stenosis bilaterally. Cardiac status stable.no further cardiac work up at this point. Conservatively managed (No surgery) recommended for fracture of right distal fibula above the ankle joint. Physical therapy. possible discharge to [facility]. Plan: No distress Cardiac status stable Heart rate stable Blood pressure stable On ASA 81 mg daily,Lipitor 40 mg daily,Hydrodiuril 25 mg daily, Dilantin 200 mg BID, Continue current medications Continue current treatment Conservative management (No surgery) recommended of fracture of right distal fibula above the ankle joint. with soft cast Physical therapy Seizure precaution Possible discharge to [facility]. Cleared for discharge from cardiac standpoint Scheduled for Out patient stress test Will follow up Plan and treatment discussed with Dr. Fajardo
[2018-11-28 07:16] VITALS: BP 120/75; PULSE 80; RESP 16; TEMP 98.3; O2SAT 100
[2018-11-28 07:24] LABS: BASO # 0.01 K/mm3 (0.0-2.0); BASO % 0.1 % (0.0-3.0); EOS # 0.1 (0.0-0.7); GRAN # 5.63 (1.4-6.5); HEMOGLOBIN 10.8 g/dL (12.0-16.0); LYMPH # 2.2 (1.2-3.4); LYMPH % 25.2 % (22.0-35.0); MEAN CELL VOLUME 96.4 fl (80.0-105.0); MEAN CORPUSCULAR HEMOGLOBIN 32.5 pg (25.0-35.0); MEAN CORPUSCULAR HGB CONC 33.8 g/dl (31.0-37.0); MEAN PLATELET VOLUME 10.1 fl (7.0-11.0); MONO # 0.8 (0.1-0.6); MONO % 8.7 % (1.0-6.0); RBC 3.32 10^6/uL (3.5-6.1); RED CELL DISTRIBUTION WIDTH 12.6 % (11.5-14.5); WHITE BLOOD COUNT 8.7 10^3/uL (4.5-11.0)
[2018-11-28 07:50] LABS: ALB/GLOB RATIO 1.1 (1.1-1.8); ALBUMIN 3.6 g/dL (3.0-4.8); ALT/SGPT 28 U/L (7-56); AST/SGOT 36 U/L (14-36); BLOOD UREA NITROGEN 15 mg/dL (7-21); GFR NON-AFRICAN AMERICAN > 60
[2018-11-28] MEDS: POLYETHYLENE GLYCOL 3350 17 GM/Dose PACKET PO SCH (09:49)
[2018-11-28] MEDS: Potassium Chloride 20 mEq ER Tab PO SCH (09:50)
[2018-11-28] MEDS ORDERED: Potassium Chloride 20 mEq ER Tab PO ONE (10:51)
--- NOTE | 2018-11-28 11:36 | PN ---
DATE: 11/28/2018 REASON FOR CONSULTATION: Followup, cardiac evaluation, rule out syncope, status post fractured hip, distal fibular fracture, being managed medically, waiting to go for rehab facility. The patient had echocardiography done, essentially preserved LV function, arrangement has been made to follow up stress test in 8 weeks. Discussed with the patient risk stratification. The patient is going for [facility]. Continue rehab. This note is in addition dictated by nurse practitioner, Emy Boyd. CVA status is stable. Maxim Fajardo MD
== END 2018-11-28 13:40 | DRG 312 ==
LOC: ED 02:42 → ERH 05:54 → 3RNO 11:49
PROVIDERS: ADMIT Internal Medicine Nephrology; ATTEND Internal Medicine Nephrology
PROC: 2W3QX2Z Immobilization of Right Lower Leg using Cast (ICD-10-PCS; principal; 2018-11-25)
DX: R55 Syncope and collapse (principal); R42 Dizziness and giddiness; T42.0X5A Adverse effect of hydantoin derivatives, initial encounter; S82.61XA Displaced fracture of lateral malleolus of right fibula, initial encounter for closed fracture; E87.6 Hypokalemia; F41.9 Anxiety disorder, unspecified; G40.909 Epilepsy, unspecified, not intractable, without status epilepticus; I10 Essential (primary) hypertension; I65.23 Occlusion and stenosis of bilateral carotid arteries; H91.93 Unspecified hearing loss, bilateral; I08.1 Rheumatic disorders of both mitral and tricuspid valves; I27.20 Pulmonary hypertension, unspecified; E78.5 Hyperlipidemia, unspecified; M19.90 Unspecified osteoarthritis, unspecified site; R29.6 Repeated falls; W01.0XXA Fall on same level from slipping, tripping and stumbling without subsequent striking against object, initial encounter; Y92.002 Bathroom of unspecified non-institutional (private) residence as the place of occurrence of the external cause; Z86.011 Personal history of benign neoplasm of the brain; Z97.4 Presence of external hearing-aid; Z87.891 Personal history of nicotine dependence